=== PATIENT | female | born 1995 | race African-American/Black ===

== ENCOUNTER 2017-01-03 21:32 | Emergency (ER) | payer MEDICAID ==
[~2017-01-03] VITALS: Ht 157.5 cm; Wt 69.9 kg
[~2017-01-03 21:32] MED LIST: PRENATAL1 TA1; PRENATAL1 TA1 PO
[2017-01-03 22:06] VITALS: BP 112/72
[2017-01-03 23:56] VITALS: BP 112/72
--- NOTE | 2017-01-04 00:06 | NUR ---
PATIENT PRESENTS TO ED WITH C/O LOWER ABD PAIN. . PT DENIES N/V/D; SKIN IS PINK/WARM/DRY; AAOX4 WITH EVEN AND STEADY GAIT; LUNGS CLEAR BL; HR EVEN AND REGULAR; PT DENIES ANY FEVER, CP, SOB, OR COUGH AT THIS TIME; PATIENT STATES PAIN OF 8/10 AT THIS TIME; VSS; PATIENT POSITIONED FOR COMFORT; HOB ELEVATED; BEDRAILS UP X2; BED DOWN. ER MD MADE AWARE OF PT STATUS.
== END 2017-01-04 00:43 | disposition home or self-care (01) ==
LOC: MED 21:32
DX: R10.30 Lower abdominal pain, unspecified (principal); R11.0 Nausea; K21.9 Gastro-esophageal reflux disease without esophagitis
CPT/HCPCS: 36415; 74000; 76801; 80048; 81001; 84702; 85025; 86900; 86901; 99285; Q0092

== ENCOUNTER 2017-03-22 21:46 | Emergency (ER) | payer MEDICAID ==
[~2017-03-22] VITALS: Ht 165.1 cm; Wt 68.0 kg
[2017-03-22 21:46] VITALS: BP 102/68
--- NOTE | 2017-03-22 21:46 | NUR ---
PT ARRIVED IN BED
--- NOTE | 2017-03-22 21:46 | NUR ---
BIBA FOR SEIZURES. PT STATED SHE WAS 6 WEEKS AND WAS SENT TO LABOR/DELIVERY. PT RETURNED TO ER FOR TREATMENT OF SEIZURE DISORDER. HCG NEGATIVE. ULTRASOUND NEGATIVE FOR . PT HAS BLISTERS ON HER LIPS. PT DENIES N/V/D; AAOX4 WITH EVEN AND STEADY GAIT; LUNGS CLEAR BL; HR EVEN AND REGULAR; PT DENIES ANY FEVER, CP, SOB, OR COUGH AT THIS TIME; PATIENT STATES PAIN OF 0/10 AT THIS TIME; VSS; PATIENT POSITIONED FOR COMFORT; HOB ELEVATED; BEDRAILS UP X2; BED DOWN. ER MD MADE AWARE OF PT STATUS.
[2017-03-22] MEDS ORDERED: PHENYTOIN 1,000 MG in NACL 0.9% 100 ML IV ONE (22:15)
[2017-03-22 22:17] VITALS: BP 109/74
[2017-03-22] MEDS ORDERED: PHENYTOIN 250 MG/5 ML VIAL IV ONE (22:32)
[2017-03-22 22:57] LABS: BASOPHILS # (AUTO) 0.2 K/uL (0.00-0.22); BASOPHILS % (AUTO) 4.9 % (0.0-2.0); EOSINOPHILS # (AUTO) 0.1 K/uL (0-0.4); EOSINOPHILS % (AUTO) 2.2 % (0.0-4.0); HEMATOCRIT 32.4 % (36-48); HEMOGLOBIN 10.4 g/dL (12.0-16.0); LYMPHOCYTES # (AUTO) 1.1 K/uL (2.5-16.5); LYMPHOCYTES % (AUTO) 22.7 % (20.5-51.1); MEAN CORPUSCULAR HEMOGLOBIN 24 pg (27-31); MEAN CORPUSCULAR HGB CONC 32 g/dL (33-37); MEAN CORPUSCULAR VOLUME 76 fL (80-94); MONOCYTES # (AUTO) 0.4 K/uL (0.8-1.0); MONOCYTES % (AUTO) 7.6 % (1.7-9.3); NEUTROPHILS # (AUTO) 2.8 K/uL (1.8-7.7); NEUTROPHILS % (AUTO) 62.6 % (42.2-75.2); PLATELET COUNT (AUTO) 258 K/uL (140-450); RED BLOOD CELL COUNT(AUTO) 4.28 MIL/uL (4.20-5.40); RED CELL DISTRIBUTION WIDTH 16.2 % (11.6-13.7); WHITE BLOOD COUNT (AUTO) 4.6 K/uL (4.8-10.8)
[2017-03-22 23:04] LABS: ANION GAP 13.4 (8-16); CARBON DIOXIDE 26.2 mmol/L (21-32); CREATININE 0.9 mg/dL (0.6-1.3); POTASSIUM 3.6 mmol/L (3.5-5.1)
[2017-03-22 23:45] VITALS: BP 111/67
--- NOTE | 2017-03-22 23:45 | NUR ---
Patient discharged with v/s stable. Written and verbal after care instructions given and explained. Patient alert, oriented and verbalized understanding of instructions. Ambulatory with to car. All questions addressed prior to discharge. ID band removed. Patient advised to follow up with PMD. Rx of FAMCICLOVIR given. Patient educated on indication of medication including possible reaction and side effects. Opportunity to ask questions provided and answered.
== END 2017-03-22 23:45 | disposition home or self-care (01) ==
LOC: MED 21:46 → EDSTATUS 21:46 → MED 23:45
DX: S00.521A Blister (nonthermal) of lip, initial encounter (principal); R56.9 Unspecified convulsions; K21.9 Gastro-esophageal reflux disease without esophagitis
CPT/HCPCS: 36415; 76801; 80048; 81025; 85025; 96365; 99285; J1165; Q0092

== ENCOUNTER 2019-03-29 18:06 | Inpatient (IN) | payer MEDICAID ==
[~2019-03-29] VITALS: Ht 157.5 cm; Wt 68.0 kg
[2019-03-29 18:11] VITALS: BP 127/78
--- NOTE | 2019-03-29 18:40 | NUR ---
PT TAKEN TO BED 5.
--- NOTE | 2019-03-29 18:51 | NUR ---
PATIENT PRESENTS TO ED WITH C/O L EAR PAIN, HEADACHES & N/V X3 DAYS. HX: EPILEPSY PATIENT STATES PAIN OF 10/10 AT THIS TIME; VSS; PATIENT POSITIONED FOR COMFORT; HOB ELEVATED; BEDRAILS UP X2; BED DOWN. ER MD MADE AWARE OF PT STATUS.
[2019-03-29] MEDS ORDERED: NACL 0.9% 500 ML IV ONE (19:06)
--- NOTE | 2019-03-29 19:06 | NUR ---
RECEIVED REPORT FROM JIAN ORONA. TRANSFER OF CARE AT THIS TIME.
[2019-03-29] MEDS ORDERED: KETOROLAC 30 MG/ML VIAL IVP ONE (19:10)
[2019-03-29] MEDS ORDERED: ONDANSETRON 4 MG/2 ML VIAL IVP ONE (19:10)
--- NOTE | 2019-03-29 19:32 | NUR ---
Dr. Donato examining patient.
--- NOTE | 2019-03-29 19:53 | NUR ---
PT DENIES NAUSEA AT THIS TIME. PAIN DECREASED 2/10 IN LT EAR AT THIS TIME.
--- NOTE | 2019-03-29 20:06 | NUR ---
INFLUENZA SWAB COLLECTED AT THIS TIME AND GIVEN TO LAB.
[2019-03-29 20:14] LABS: BASOPHILS % (AUTO) 0.2 % (0.0-2.0); EOSINOPHILS % (AUTO) 0.1 % (0.0-4.0); HEMATOCRIT 24.6 % (36-48); HEMOGLOBIN 7.5 g/dL (12.0-16.0); LYMPHOCYTES # (AUTO) 0.9 K/uL (2.5-16.5); LYMPHOCYTES % (AUTO) 11.7 % (20.5-51.1); MEAN CORPUSCULAR HEMOGLOBIN 20 pg (27-31); MEAN CORPUSCULAR HGB CONC 30 g/dL (33-37); MEAN CORPUSCULAR VOLUME 64.4 fL (80-94); MONOCYTES # (AUTO) 0.7 K/uL (0.8-1.0); MONOCYTES % (AUTO) 9.7 % (1.7-9.3); NEUTROPHILS # (AUTO) 5.8 K/uL (1.8-7.7); NEUTROPHILS % (AUTO) 78.3 % (42.2-75.2); PLATELET COUNT (AUTO) 208 K/uL (140-450); RED BLOOD CELL COUNT(AUTO) 3.82 MIL/uL (4.20-5.40); RED CELL DISTRIBUTION WIDTH 19.2 % (11.6-13.7); WHITE BLOOD COUNT (AUTO) 7.4 K/uL (4.8-10.8)
[2019-03-29 20:34] LABS: ANION GAP 11.1 (8-16); CARBON DIOXIDE 26.2 mmol/L (21-32); CREATININE 0.8 mg/dL (0.6-1.3); POTASSIUM 3.3 mmol/L (3.5-5.1)
[2019-03-29 20:39] LABS: ALBUMIN 3.5 g/dL (3.4-5.0); TOTAL BILIRUBIN 0.3 mg/dL (0.0-1.0)
--- NOTE | 2019-03-29 21:37 | NUR ---
PT RESTING IN BED CALM AND PLEASANT, NO C/O NAUSEA OR PAIN AT THIS TIME. BED LOCKED AND IN LOW POSITION, VSS. WILL CONTINUE TO MONITOR.
[2019-03-29] MEDS: NACL 0.9% 1,000 ML IV SCH (22:08)
[2019-03-29] MEDS ORDERED: ONDANSETRON 4 MG/2 ML VIAL IVP PRN (22:10)
[2019-03-29] MEDS ORDERED: ACETAMINOPHEN 325 MG TAB PO PRN (22:10)
--- NOTE | 2019-03-29 22:53 | NUR ---
ADMITTED PT FROM ER VIA WHEELCHAIR. AAOX4. NO C/O PAIN OR NAUSEA/VOMITING AT THIS TIME. ON ROOM AIR. SKIN INTACT. IV TO LEFT AC #20G, PATENT AND INTACT. ORIENTED PT TO ROOM. SAFETY PRECAUTION IN PLACE. CALL LIGHT WITHIN REACH.
--- NOTE | 2019-03-29 22:59 | NUR ---
Patient will be admitted to care of DR PUENTE. Admited to [facility]. Will go to room 125B. Belongings list completed. Report to JIAN DEL RIO.
[2019-03-29 23:14] VITALS: BP 108/59
[2019-03-29 23:23] LABS: PROTHROMBIN TIME 10.2 secs (10.8-13.4)
[2019-03-29 23:27] LABS: FREE T4 (FREE THYROXINE) 1.15 ng/dL (0.76-1.46); MAGNESIUM 1.8 mg/dL (1.8-2.4); PHOSPHORUS 2.8 mg/dL (2.5-4.9); THYROID STIMULATING HORMONE 1.12 uIU/mL (0.34-3.74)
[2019-03-30] MEDS ORDERED: KETOROLAC 30 MG/ML VIAL IVP SCH (01:00)
--- NOTE | 2019-03-30 01:02 | NUR ---
PT C/O EAR PAIN. DR. POND ORDERED TORADOL 30 MG IVP.
[2019-03-30] MEDS ORDERED: MAGNESIUM CITRATE 300 ML BTL PO SCH (03:00)
[2019-03-30] MEDS ORDERED: POTASSIUM CHLORIDE 10 MEQ TABER PO SCH (03:00)
--- NOTE | 2019-03-30 04:00 | NUR ---
PT SLEEPING AT THIS TIME, WAKES EASILY. NO S/S OF PAIN OR SOB. IVF INFUSING WELL. CALL LIGHT WITHIN REACH.
[2019-03-30] MEDS: HYDROcodone/APAP 7.5/325 MG 1 TAB PO PRN ×2 (06:03→08:41)
--- NOTE | 2019-03-30 06:20 | NUR ---
UNABLE TO COLLECT URINE AND STOOL SAMPLE FROM PT. PT HAD NO BM ALL NIGHT. WILL ENDORSE TO DAY SHIFT.
--- NOTE | 2019-03-30 07:25 | NUR ---
ENDORSED PT TO DAY SHIFT NURSE. PT IN STABLE CONDITION.
--- NOTE | 2019-03-30 07:26 | NUR ---
RECEIVED REPORT FROM HOME ECONOMICS EXTENSION WORKER NURSE FOR CONTINUITY OF CARE. BED IN LOW POSITION, CALL LIGHT ON AND WITHIN REACH. WILL CONTINUE TO MONITOR.
[2019-03-30 08:00] VITALS: BP 103/63
[2019-03-30] MEDS: DULoxetine 30 MG CAPDR PO SCH (08:41)
[2019-03-30] MEDS: FERROUS SULFATE 325 MG TABEC PO SCH (08:42)
[2019-03-30] MEDS: ASCORBIC ACID 500 MG TAB PO SCH (08:42)
[2019-03-30] MEDS: DOCUSATE SODIUM 100 MG GELCAP PO SCH ×2 (08:42→22:00)
[2019-03-30] MEDS: PSYLLIUM 12.2 GM/PKT PO SCH ×2 (08:45→22:00)
[2019-03-30 09:54] LABS: BASOPHILS % (AUTO) 0.3 % (0.0-2.0); EOSINOPHILS % (AUTO) 0.1 % (0.0-4.0); HEMATOCRIT 22.9 % (36-48); LYMPHOCYTES # (AUTO) 0.9 K/uL (2.5-16.5); LYMPHOCYTES % (AUTO) 13.5 % (20.5-51.1); MEAN CORPUSCULAR HEMOGLOBIN 20 pg (27-31); MEAN CORPUSCULAR HGB CONC 30 g/dL (33-37); MEAN CORPUSCULAR VOLUME 64.4 fL (80-94); MONOCYTES # (AUTO) 0.8 K/uL (0.8-1.0); MONOCYTES % (AUTO) 11.2 % (1.7-9.3); NEUTROPHILS # (AUTO) 5.1 K/uL (1.8-7.7); NEUTROPHILS % (AUTO) 74.9 % (42.2-75.2); PLATELET COUNT (AUTO) 199 K/uL (140-450); RED BLOOD CELL COUNT(AUTO) 3.56 MIL/uL (4.20-5.40); RED CELL DISTRIBUTION WIDTH 19.3 % (11.6-13.7); WHITE BLOOD COUNT (AUTO) 6.9 K/uL (4.8-10.8)
[2019-03-30] MEDS: AMOXICILLIN 500 MG CAP PO SCH ×2 (09:59→20:38)
--- NOTE | 2019-03-30 10:00 | NUR ---
PATIENT IS RESTING IN BED, VOMITTED X1. WILL CONTINUE TO MONITOR.
[2019-03-30 10:06] LABS: ANION GAP 13.4 (8-16); CARBON DIOXIDE 23.4 mmol/L (21-32); CREATININE 0.7 mg/dL (0.6-1.3); POTASSIUM 3.8 mmol/L (3.5-5.1)
[2019-03-30 10:11] LABS: HEMOGLOBIN 6.9 g/dL (12.0-16.0)
[2019-03-30] MEDS: NEOMYCIN/POLYMYXIN/HC OT SOL. 10 ML BTL OT SCH ×4 (10:14→20:42)
[2019-03-30 10:16] LABS: CHOL/HDL RATIO 2.9 (1-4.5); MAGNESIUM 1.9 mg/dL (1.8-2.4); PHOSPHORUS 2.5 mg/dL (2.5-4.9)
[2019-03-30] MEDS ORDERED: ALUMINUM HYD/MAG/SIMETHICONE 30 ML UDC PO SCH (11:55)
[2019-03-30] MEDS ORDERED: DICYCLOMINE HCL LIQUID 10 MG/5 ML UDC PO SCH (11:55)
[2019-03-30] MEDS ORDERED: KETOROLAC 30 MG/ML VIAL IM PRN (11:55)
[2019-03-30] MEDS ORDERED: LIDOCAINE VISCOUS 2% 20 ML UDC PO SCH (11:55)
--- NOTE | 2019-03-30 12:30 | NUR ---
1 UNIT OF PRBC ORDERED FOR A CRITICAL HGB OF 6.9. PATIENT IS IN STABLE CONDITION, PAIN MEDICATIONS ADMINISTERED.
--- NOTE | 2019-03-30 13:00 | NUR ---
PATIENT IS RESTING IN BED, BED IN LOW POSITION, CALL LIGHT ON AND WITHIN REACH. WILL CONTINUE TO MONITOR.
--- NOTE | 2019-03-30 15:30 | NUR ---
PATIENT IS RESTING IN BED, CALL LIGHT ON AND WITHIN REACH. 1 UNIT OF PRBC TO BE GIVEN.
[2019-03-30 16:00] VITALS: BP 112/62
[2019-03-30] MEDS ORDERED: SODIUM FERRIC GLUCONATE 125 MG in NACL 0.9% 100 ML IV SCH ×2 (16:00→21:00)
--- NOTE | 2019-03-30 18:00 | NUR ---
1 UNIT OF PRBC IN PROCESS, PATIENT TOLERATING WELL, PAIN MEDICATIONS ADMINISTERED. WILL CONTINUE TO MONITOR.
--- NOTE | 2019-03-30 19:30 | NUR ---
RECEIVED BEDSIDE REPORT FROM AM SHIFT RN JAREN, FOR PT'S CONTINUITY OF CARE. PT IS LYING DOWN, IS AAOX4, IS ON ROOM AIR, HAS LEFT AC 20 G WITH PRBC INFUSING WITH ONLY 1 UNIT ORDERED, DENIES ANY PAIN AT THIS TIME. EXPLAINED TO PT THE TEXTILES SALES REPRESENTATIVE ROUTINE, PT VERBALIZED UNDERSTANDING. SAFETY MEASURES IN PLACE. CALL LIGHT IS WITHIN REACH. WILL MONITOR PT THROUGHOUT SHIFT.
--- NOTE | 2019-03-30 19:30 | NUR ---
ENDORSED TO RETAIL BUSINESS DEVELOPMENT MANAGER NURSE FOR CONTINUITY OF CARE.
--- NOTE | 2019-03-30 20:15 | NUR ---
PRBC 1ST UNIT ENDED. NO REACTIONS NOTED, PT DENIES ANY PAIN OR DISCOMFORT. VS CHECKED AND CHARTED.
--- NOTE | 2019-03-30 20:42 | NUR ---
ADMINISTERED SCHEDULED PO AND OTIC MEDICATION ORDERED. PT VOMITED WITH MODERATE AMOUNT, DID NOT ADMINISTER OTHER MEDICATIONS DT VOMITING. PT CONCERNED SHE MIGHT VOMIT DT MEDS. PT TEACHING GIVEN, ENCOURAGED PT TO ONLY TAKE SIPS OF WATER, AND KEEP HOB ELEVATED. PT VERBALIZED UNDERSTANDING. WILL CONTINUE TO MONITOR PT.
[2019-03-30 20:48] LABS: APPEARANCE,URINE SL CLOUDY (CLEAR); BARBITURATE, URINE NEG. ng/ml (NEG <=200); BENZODIAZEPINE, URINE NEG. ng/mL (NEG <=200); BILIRUBIN,URINE 1+ (NEGATIVE); BLOOD, URINE TRACE-I (NEGATIVE); CANNABINOID, URINE POS. ng/mL (NEG <=50); COCAINE, URINE NEG. ng/mL (NEG <=300); COLOR,URINE YELLOW (YELLOW); LEUKOCYTE ESTERASE ,URINE TRACE (NEGATIVE); NITRITE, URINE POSITIVE (NEGATIVE); OPIATE, URINE POS. ng/mL (NEG <=2000); PHENCYCLIDINE SCREEN,URINE NEG. ng/mL (NEG <=25); UGLUCOSE NEGATIVE (NEGATIVE)
[2019-03-30 21:12] LABS: RBC,URINE 0 /HPF (0-5); WBC,URINE 0-5 /HPF (0-5)
--- NOTE | 2019-03-30 22:00 | NUR ---
PT REFUSED SCHEDULED MEDICATIONS DT N/V AND UNABLE TO HOLD DOWN ANYTHING SHE INGESTS.
[2019-03-30] MEDS: NACL 0.9% 1,000 ML IV SCH (22:08)
[2019-03-31] VITALS: BP 106/58
--- NOTE | 2019-03-31 00:30 | NUR ---
PT C/O N/V AND EAR ACHE 10/09, ADMINISTERED PRN IVP MEDICATION AND PRN IVP PAIN MEDICATION ORDERED. VS CHECKED AND CHARTED. LAB PERSONNEL AT BEDSIDE FOR CBC DRAW PER MD ORDER. INFORMED MD RE: VOMITING. MD INCREASED IVF RATE TO 100ML/HR. WILL CONTINUE TO MONITOR PT.
[2019-03-31] MEDS: KETOROLAC 30 MG/ML VIAL IVP PRN ×2 (00:33→09:21)
[2019-03-31 00:43] LABS: MONOCYTES # (AUTO) 0.6 K/uL (0.8-1.0)
[2019-03-31 01:05] LABS: BASOPHILS % (AUTO) 0.2 % (0.0-2.0); EOSINOPHILS % (AUTO) 0.1 % (0.0-4.0); HEMATOCRIT 26.9 % (36-48); HEMOGLOBIN 8.4 g/dL (12.0-16.0); LYMPHOCYTES # (AUTO) 1.3 K/uL (2.5-16.5); LYMPHOCYTES % (AUTO) 17.7 % (20.5-51.1); MEAN CORPUSCULAR HEMOGLOBIN 21 pg (27-31); MEAN CORPUSCULAR HGB CONC 31 g/dL (33-37); MEAN CORPUSCULAR VOLUME 68.3 fL (80-94); MONOCYTES % (AUTO) 8.7 % (1.7-9.3); NEUTROPHILS # (AUTO) 5.2 K/uL (1.8-7.7); NEUTROPHILS % (AUTO) 73.3 % (42.2-75.2); PLATELET COUNT (AUTO) 205 K/uL (140-450); RED BLOOD CELL COUNT(AUTO) 3.94 MIL/uL (4.20-5.40); RED CELL DISTRIBUTION WIDTH 24.1 % (11.6-13.7); WHITE BLOOD COUNT (AUTO) 7.1 K/uL (4.8-10.8)
--- NOTE | 2019-03-31 02:30 | NUR ---
MADE ROUNDS. PT LYING DOWN ASLEEP WITH NO SIGN SOF DISTRESS.
--- NOTE | 2019-03-31 04:40 | NUR ---
PT AWAKE, LYING DOWN, WATCHING TV. DENIES PAIN AND N/V AT THIS TIME. PT'S NEEDS MET. WILL CONTINUE TO MONITOR PT.
[2019-03-31 06:32] LABS: BASOPHILS % (AUTO) 0.3 % (0.0-2.0); EOSINOPHILS % (AUTO) 0.2 % (0.0-4.0); HEMATOCRIT 27.5 % (36-48); HEMOGLOBIN 8.5 g/dL (12.0-16.0); LYMPHOCYTES # (AUTO) 1.2 K/uL (2.5-16.5); LYMPHOCYTES % (AUTO) 19.6 % (20.5-51.1); MEAN CORPUSCULAR HEMOGLOBIN 21 pg (27-31); MEAN CORPUSCULAR HGB CONC 31 g/dL (33-37); MEAN CORPUSCULAR VOLUME 68.8 fL (80-94); MONOCYTES # (AUTO) 0.5 K/uL (0.8-1.0); MONOCYTES % (AUTO) 8.8 % (1.7-9.3); NEUTROPHILS # (AUTO) 4.3 K/uL (1.8-7.7); NEUTROPHILS % (AUTO) 71.1 % (42.2-75.2); PLATELET COUNT (AUTO) 183 K/uL (140-450); RED CELL DISTRIBUTION WIDTH 23.2 % (11.6-13.7); WHITE BLOOD COUNT (AUTO) 6.1 K/uL (4.8-10.8)
--- NOTE | 2019-03-31 06:40 | NUR ---
PT LYING DOWN, DENIES ANY PAIN OR N/V. REMINDED PT RE: STOOL SAMPLE COLLECTION. PT VERBALIZED UNDERSTANDING. PT'S NEEDS MET AT THIS TIME. WILL ENDORSE TO AM SHIFT RN FOR PT'S CONTINUITY OF CARE.
--- NOTE | 2019-03-31 07:24 | NUR ---
RECEIVED BEDSIDE REPORT FROM CHIEF TALENT OFFICER NURSE, PT IS AWAKE AND ALERT, NO S/S OF DISTRESS OR SOB. PT IS ON ROOM AIR, SKIN IS INTACT. IV SITE L AC 20 G INFUSING NS 100 ML/HR. CALL LIGHT IS WITHIN REACH. WILL CONTINUE TO MONITOR.
[2019-03-31 07:34] LABS: ANION GAP 14.5 (8-16); CREATININE 0.7 mg/dL (0.6-1.3); POTASSIUM 3.5 mmol/L (3.5-5.1)
[2019-03-31 07:42] LABS: MAGNESIUM 1.9 mg/dL (1.8-2.4); PHOSPHORUS 2.4 mg/dL (2.5-4.9)
[2019-03-31 08:00] VITALS: BP 107/59
[2019-03-31 08:07] LABS: FOLIC ACID 6.2 ng/mL (>3.0)
--- NOTE | 2019-03-31 08:56 | NUR ---
PATIENT HAS BEEN SCREENED AND CATEGORIZED LOW NUTRITION RISK. PATIENT WILL BE SEEN WITHIN 7 DAYS OF ADMISSION. 04/05/[address]
[2019-03-31] MEDS: DULoxetine 30 MG CAPDR PO SCH (09:00)
[2019-03-31] MEDS: DOCUSATE SODIUM 100 MG GELCAP PO SCH (09:00)
[2019-03-31] MEDS ORDERED: LACTOBACILLUS RHAMNOSUS GG 1 EACH CAP PO SCH (09:00)
[2019-03-31] MEDS: PSYLLIUM 12.2 GM/PKT PO SCH (09:00)
[2019-03-31] MEDS: AMOXICILLIN 500 MG CAP PO SCH (09:20)
[2019-03-31] MEDS: ASCORBIC ACID 500 MG TAB PO SCH (09:20)
[2019-03-31] MEDS: FERROUS SULFATE 325 MG TABEC PO SCH (09:21)
[2019-03-31] MEDS: NEOMYCIN/POLYMYXIN/HC OT SOL. 10 ML BTL OT SCH (09:22)
--- NOTE | 2019-03-31 09:39 | NUR ---
AM MEDS ADMINISTERED, PT TOLERATED WELL. ADMINISTERED PRN TORADOL FOR 7/10 EAR PAIN. WILL REASSESS WITHIN AN HOUR. PT'S MOTHER TALKING WITH DR GIANG AT THIS TIME.
[2019-03-31] MEDS ORDERED: ONDA8TAB PO (10:27)
[2019-03-31] MEDS ORDERED: FER325 PO ×2 (10:27→12:04)
[2019-03-31] MEDS ORDERED: LACT10CA PO ×2 (10:27→11:38)
[2019-03-31] MEDS ORDERED: IBUP-2213 PO (11:21)
[2019-03-31] MEDS ORDERED: CIPR7.5S OT (11:21)
[2019-03-31] MEDS ORDERED: AMOX-999 PO (11:21)
[2019-03-31] MEDS ORDERED: DOCU-299 PO (11:38)
--- NOTE | 2019-03-31 12:19 | NUR ---
PT HAS DC'D. PT WAS GIVEN EXTENSIVE DC TEACHING AND INSTRUCTIONS ON PRESCRIPTIONS. PT VERBALIZED UNDERSTANDING OF TEACHING. PT DECLINED THE FLU VACCINE. IV SITE AND WRIST BANDS WERE REMOVED. PT LEFT WITH ALL HER BELONGINGS IN STABLE CONDITION.
== END 2019-03-31 12:15 | disposition home or self-care (01) | DRG 663 ==
LOC: MED 18:06 → MMU 22:17
PROVIDERS: ADMIT General Practice; ATTEND General Practice
PROC: 30233N1 Transfusion of Nonautologous Red Blood Cells into Peripheral Vein, Percutaneous Approach (ICD-10-PCS; principal; 2019-03-30)
DX: D50.9 Iron deficiency anemia, unspecified (principal); E83.39 Other disorders of phosphorus metabolism; E66.3 Overweight; H60.92 Unspecified otitis externa, left ear; H66.92 Otitis media, unspecified, left ear; E87.6 Hypokalemia; Z68.27 Body mass index [BMI] 27.0-27.9, adult; K21.9 Gastro-esophageal reflux disease without esophagitis; Z90.49 Acquired absence of other specified parts of digestive tract
CPT/HCPCS: 36415; 71045; 80048; 80053; 80305; 81001; 82150; 82607; 82728; 82746; 83036; 83540; 83690; 83735; 83880; 84100; 84439; 84443; 84484; 85025; 85045; 85610; 85730; 86886; 86900; 86901; 86920; 87081; 87804; 96361; 96374; 96375; 99285; J0696; J1885; J2405; J2916; J7030; J7060; P9016